=== PATIENT | female | born 2000 | race African-American/Black ===

== ENCOUNTER 2019-03-07 23:36 | Emergency (ER) | payer MEDICAID ==
[~2019-03-07] VITALS: Ht 167.6 cm; Wt 66.0 kg
[2019-03-08 00:50] LABS: BASOPHILS % 0.8 % (0.0-2.0); EOSINOPHILS % 3.1 % (0.0-5.0); HEMATOCRIT. 32.4 % (36.0-48.0); HEMOGLOBIN. 10.9 g/dL (12.0-16.0); LYMPHOCYTES % 35.1 % (20.0-50.0); MEAN CORPUSCULAR HEMOGLOBIN 30.7 pg (28.0-32.0); MEAN CORPUSCULAR VOLUME 90.9 fL (81.0-99.0); MEAN PLATELET VOLUME 8.2 fl (7.4-10.4); MONOCYTES % 8.1 % (2.0-8.0); NEUTROPHILS % 52.9 % (40.0-76.0); PLATELET 207 x1000/uL (130-400); RED BLOOD CELL COUNT 3.56 mill/uL (4.2-5.4); RED CELL DISTRIBUTION WIDTH 17.2 % (11.6-14.6)
[2019-03-08 00:55] LABS: CHLORIDE 104 mEq/L (98-107)
[2019-03-08 01:18] LABS: B-HCG QUANTITATIVE 12715 mIU/mL (<3)
[2019-03-08 02:58] VITALS: BP 104/74
== END 2019-03-08 03:12 | disposition home or self-care (01) ==
LOC: ER 23:36
DX: O20.0 Threatened abortion (principal); Z91.018 Allergy to other foods; Z3A.01 Less than 8 weeks gestation of pregnancy
CPT/HCPCS: 36415; 76801; 80048; 81025; 84702; 86850; 86900; 99284

== ENCOUNTER 2019-03-31 00:52 | Emergency (ER) | payer MEDICAID ==
[~2019-03-31] VITALS: Ht 167.6 cm; Wt 143.0 kg
[2019-03-31 04:09] LABS: BASOPHILS % 1.4 % (0.0-2.0); EOSINOPHILS % 1.7 % (0.0-5.0); HEMATOCRIT. 32.2 % (36.0-48.0); HEMOGLOBIN. 11.2 g/dL (12.0-16.0); LYMPHOCYTES % 29.4 % (20.0-50.0); MEAN CORPUSCULAR VOLUME 94.8 fL (81.0-99.0); MEAN PLATELET VOLUME 8.4 fl (7.4-10.4); MONOCYTES % 7.7 % (2.0-8.0); NEUTROPHILS % 59.8 % (40.0-76.0); PLATELET 187 x1000/uL (130-400); RED BLOOD CELL COUNT 3.39 mill/uL (4.2-5.4); RED CELL DISTRIBUTION WIDTH 18.1 % (11.6-14.6)
[2019-03-31 04:16] LABS: CHLORIDE 106 mEq/L (98-107)
[2019-03-31 04:17] LABS: CLARITY URINE CLOUDY (CLEAR); COLOR URINE YELLOW (YELLOW); KETONES URINE 4+ (NEGATIVE); LEUKOCYTE ESTERASE URINE 1+ (NEGATIVE); NITRITE URINE NEGATIVE (NEGATIVE); OCCULT BLOOD URINE NEGATIVE (NEGATIVE); PH URINE 5.5 (4.5-8.0); PROTEIN URINE NEGATIVE (NEGATIVE); SPECIFIC GRAVITY URINE 1.026 (1.005-1.030)
[2019-03-31 04:40] LABS: B-HCG QUANTITATIVE 65640 mIU/mL (<3)
[2019-03-31] MEDS: ACETAMINOPHEN 325MG TABLET PO PRN (04:59)
[2019-03-31 07:02] VITALS: BP 119/74
== END 2019-03-31 07:06 | disposition home or self-care (01) ==
LOC: ER 01:58
DX: O20.0 Threatened abortion (principal); Z3A.09 9 weeks gestation of pregnancy; O23.41 Unspecified infection of urinary tract in pregnancy, first trimester; Z88.8 Allergy status to other drugs, medicaments and biological substances
CPT/HCPCS: 36415; 76801; 81025; 84702; 86850; 86900; 99284

== ENCOUNTER 2019-09-03 12:00 | Observation (INO) | payer SELFPAY ==
[~2019-09-03] VITALS: Ht 167.6 cm; Wt 72.6 kg
[2019-09-03] MEDS ORDERED: PNV1TABL50 PO (12:49)
[2019-09-03] MEDS ORDERED: ONDANSETRON HCL 4MG/2ML INJ IV PRN (13:15)
[2019-09-03] MEDS ORDERED: FAMOTIDINE 20MG/2ML VIAL IV SCH (13:15)
[2019-09-03] MEDS ORDERED: ACETAMINOPHEN 500MG TABLET PO SCH (13:15)
[2019-09-03] MEDS ORDERED: DEXT 5%/LACTATED RINGERS 1,000 ML IV SCH (13:15)
[2019-09-03] MEDS ORDERED: LACTATED RINGERS 1,000 ML IV SCH (13:15)
[2019-09-03] MEDS ORDERED: CEFTRIAXONE SODIUM 250 MG/VIAL IM ONE (14:30)
== END 2019-09-03 15:25 | disposition home or self-care (01) ==
LOC: ER 12:00 → 8 EST LDRP 12:28
PROVIDERS: ADMIT Obstetrics & Gynecology; ATTEND Obstetrics & Gynecology
DX: O26.893 Other specified pregnancy related conditions, third trimester (principal); R10.13 Epigastric pain; R51 Headache; O21.9 Vomiting of pregnancy, unspecified; Z3A.31 31 weeks gestation of pregnancy
CPT/HCPCS: 96361; 96372; 96374; 96375; 99281; G0378; J0696; J2405; J3490; 96360

== ENCOUNTER 2025-07-15 12:28 | Emergency (ER) | payer MEDICAID ==
[~2025-07-15] VITALS: Ht 170.2 cm; Wt 64.0 kg
[~2025-07-15 12:28] MED LIST: PNV1TABL50 PO
[2025-07-15 12:30] VITALS: O2SAT 99
[2025-07-15 13:08] LABS: BASOPHILS % 0.8 % (0.0-2.0); EOSINOPHILS % 5.0 % (0.0-5.0); HEMATOCRIT. 32.2 % (36.0-48.0); HEMOGLOBIN. 10.9 g/dL (12.0-16.0); LYMPHOCYTES % 25.0 % (20.0-50.0); MEAN PLATELET VOLUME 8.8 fl (7.4-10.4); MONOCYTES % 9.1 % (2.0-8.0); NEUTROPHILS % 60.1 % (40.0-76.0); PLATELET 236 x1000/uL (130-400); RED BLOOD CELL COUNT 3.58 mill/uL (4.2-5.4); RED CELL DISTRIBUTION WIDTH 14.5 % (11.6-14.6)
[2025-07-15 13:23] LABS: CREATININE 0.9 mg/dL (0.6-1.0); UREA NITROGEN BLOOD 11 mg/dL (9-23)
[2025-07-15 13:25] LABS: ASPARTATE AMINOTRANSFERASE 16 IU/L (<34); BILIRUBIN DIRECT 0.2 mg/dL (<=3.0); BILIRUBIN TOTAL 0.7 mg/dL (0.1-1.0); PROTEIN TOTAL 7.8 g/dL (6.0-8.3)
[2025-07-15 13:35] LABS: INR 1.0
[2025-07-15 13:38] LABS: HCG SCREEN POSITIVE
[2025-07-15 14:05] LABS: B-HCG QUANTITATIVE 133822 mIU/mL (<6)
[2025-07-15] MEDS: SODIUM CHLORIDE 0.9% 1,000 ML IV ONE (14:26)
[2025-07-15] MEDS: ONDANSETRON HCL 4MG/2ML INJ IV ONE (14:26)
[2025-07-15 15:25] LABS: CLARITY URINE CLEAR (CLEAR); COLOR URINE YELLOW (YELLOW); GLUCOSE URINE NEGATIVE (NEGATIVE); KETONES URINE 3+ (NEGATIVE); LEUKOCYTE ESTERASE URINE NEGATIVE (NEGATIVE); NITRITE URINE NEGATIVE (NEGATIVE); OCCULT BLOOD URINE NEGATIVE (NEGATIVE); PH URINE 6.5 (4.5-8.0); PROTEIN URINE NEGATIVE (NEGATIVE); SPECIFIC GRAVITY URINE 1.030 (1.005-1.030); UROBILINOGEN URINE 1.0 E.U./dL (0.2-1.0)
[2025-07-15 16:11] VITALS: BP 113/72; PULSE 90; RESP 16; TEMP 36.8; O2SAT 100
[2025-07-15] MEDS ORDERED: ONDA-239 PO (17:20)
== END 2025-07-15 16:12 | disposition home or self-care (01) ==
LOC: ER 12:28
DX: O20.0 Threatened abortion (principal); Z79.899 Other long term (current) drug therapy; Z3A.01 Less than 8 weeks gestation of pregnancy
CPT/HCPCS: 80076; 80048; 81003; 84703; 84702; 85025; 85610; 85730; 86850; 86900; 86901; 36415; 76801; 76817; 96374; 99285; J2405; J7030; Z7610 ×2; A4606